=== PATIENT | male | born 1950 | race Caucasian/White ===

== ENCOUNTER 2016-11-20 12:50 | Emergency (ER) | payer MEDICARE, OTHER ==
[~2016-11-20] VITALS: Ht 167.6 cm; Wt 100.0 kg
[~2016-11-20 12:50] MED LIST: AMLO2.5T PO; LISI-363 PO; OMEP20TA PO; POTA99TA12 PO; PROT40TA PO; TRAM50TA PO
[2016-11-20 12:56] VITALS: BP 130/67; PULSE 69; RESP 18; TEMP 98.6; O2SAT 96
[2016-11-20] MEDS ORDERED: PANT40TA3 PO (13:05)
[2016-11-20] MEDS ORDERED: ARTISOL2 (13:05)
[2016-11-20] MEDS ORDERED: AMLO5TAB2 PO (13:05)
[2016-11-20] MEDS ORDERED: SOFOSBUVIR (13:05)
[2016-11-20] MEDS ORDERED: TRAM50TA PO (13:05)
[2016-11-20] MEDS ORDERED: METH500T3 PO (13:05)
--- NOTE | 2016-11-20 14:11 | PD ---
HPI . Neck pain Chief Complaint: Pain: Acute or Chronic Time Seen by Provider: 14:06 Travel History International Travel<30 days: No Contact w/Intl Traveler<30days: No Traveled to known affect area: No History of Present Illness HPI Patient presents with neck pain. He states that he has chronic neck and back problems and does routine physical therapy. He states that he was doing his exercises a couple of days ago when he developed pain in his neck. Pain is exacerbated by movement and exercising and is improved with shower and rest. He states the tramadol has not given him any relief. He reports no associated fever. He gives no symptoms of cervical radiculopathy. PFSH Past Medical History Arthritis: Yes Blood Disorders: No Heart Rhythm Problems: No Cancer: No Cardiovascular Problems: No Chemotherapy: No Congestive Heart Failure: No COPD: Yes Diabetes: No Endocrine: Yes (hep c) Gastrointestinal Disorders: Yes GERD: Yes Genitourinary: No Hepatitis: Yes (HEP. C) Hiatal Hernia: No Hypertension: Yes Immune Disorder: No Musculoskeletal: Yes Neurologic: No Psychiatric: No Reproductive: No Respiratory: No Radiation Therapy: No Ulcer: No Past Surgical History Abdominal Surgery: Yes (SPLENECTOMY) AICD: No Appendectomy: No Arteriovenous Shunt: No Cholecystectomy: No Coronary Artery Bypass Graft: No Ear Surgery: No Endocrine Surgery: No Eye Surgery: No Genitourinary Surgery: No Gynecologic Surgery: No Insulin Pump: No Joint Replacement: No Oral Surgery: No Pacemaker: No Other Surgery: Yes (ex lap. ? splenectomy) Social History Alcohol Use: No Tobacco Use: No Substance Use: No Allergies-Medications (Allergen,Severity, Reaction): Coded Allergies: No Known Allergies (Verified , 04/23/11) Reported Meds & Prescriptions Reported Meds & Active Scripts Active Reported Artificial Tears Opth Drops (Artificial Tear Solution Opth Drops) 0.1-0.3% Soln [sofosbuvir] 400 Mg Methocarbamol 500 Mg Tab 500 Mg PO TID Pantoprazole (Pantoprazole Sodium) 40 Mg Tab 40 Mg PO DAILY Tramadol (Tramadol HCl) 50 Mg Tab 50 Mg PO Q4H PRN Amlodipine (Amlodipine Besylate) 5 Mg Tab 5 Mg PO DAILY Review of Systems Except as stated in HPI: all other systems reviewed are Neg General / Constitutional: No: Fever, Chills Musculoskeletal: Positive: Myalgias (neck pain) Neurologic: No: Weakness, Focal Abnormalities, Paresthesia Physical Exam Narrative GENERAL: Awake and alert and in no acute distress. SKIN: Warm and dry. NECK: Diffuse tenderness to palpation. No swelling, erythema or warmth. Decreased range of motion. CARDIOVASCULAR: Regular rate and rhythm. RESPIRATORY: No accessory muscle use. MUSCULOSKELETAL: No obvious deformities. No edema. No lateralizing signs. NEUROLOGICAL: Awake and alert. No obvious cranial nerve deficits. Motor grossly within normal limits. Normal speech. PSYCHIATRIC: Appropriate mood and affect; insight and judgment normal. Data Data Last Documented VS Vital Signs Date Time Temp Pulse Resp B/P Pulse Ox O2 Delivery O2 Flow Rate FiO2 11/20/16 13:45 18 11/20/16 12:56 98.6 69 130/67 96 Orders Acetamin-Hydrocod 325-5 Mg ([place] 5-325 (11/20/16 14:15) Diazepam (Valium) (11/20/16 14:15) Ct Cerv Spine W/O Contrast (11/20/16 14:07) MDM Medical Decision Making Medical Screen Exam Complete: Yes Emergency Medical Condition: Yes Differential Diagnosis Differential diagnosis includes but is not limited to muscular neck pain, osteoarthritis, cervical stenosis, epidural abscess Narrative Course Patient presents for neck pain which started following some exercises that he does for physical therapy. Last Impressions Cervical Spine CT 11/20/16 1407 Signed Impressions: Service Date/Time: Sunday, November 20, 2016 15:08 - CONCLUSION: 1. No acute findings. Stable fusion at C5-6. Relatively stable degenerative changes compared with June 2015. Dave Solis MD Diagnosis Primary Impression: Neck pain Patient Instructions: Narcotic given in the ED Med/Other Pt SpecificInfo: Prescription(s) given Scripts Diazepam (Valium)5 Mg Tab5 Mg PO TID PRN (muscle spasm) #12 TAB Ref 0 Prov:Komal Wells MD 11/20/16 Hydrocodone-Acetaminophen ([place])5-325 mg Tab1 Tab PO Q4H PRN (PAIN) #12 TAB Ref 0 Prov:Komal Wells MD 11/20/16 Disposition: 01 DISCHARGE HOME Condition: Stable Komal Wells MD Nov 20, 2016 14:11
[2016-11-20] MEDS ORDERED: ACETAMINOPHEN/HYDROcodone 325 MG/5 MG TAB PO ONE (14:15)
[2016-11-20] MEDS ORDERED: DIAZEPAM 5 MG TAB PO ONE (14:15)
--- NOTE | 2016-11-20 15:54 | RADRPT ---
EXAM DATE/TIME: 11/20/2016 15:08 [facility] COMPARISON: CT CERVICAL SPINE W/O CONTRAST, July 06, 2015, 14:51. INDICATIONS : Neck pain for four days. RADIATION DOSE: 34.23 CTDIvol (mGy) MEDICAL HISTORY : Hypertension. Hepatitis C. SURGICAL HISTORY : Splenectomy. ENCOUNTER: Initial ACUITY: 4 - 6 days PAIN SCALE: 7/10 LOCATION: Bilateral neck TECHNIQUE: Volumetric scanning of the cervical spine was performed. Multiplanar reconstructions in the sagittal, coronal and oblique axial planes were performed. Using automated exposure control and adjustment o f the mA and/or kV according to patient size, radiation dose was kept as low as reasonably achievable to obtain optimal diagnostic quality images. FINDINGS: No acute fracture or spondylolisthesis. Stable fusion at C5-6 compared with June 2015. Posterior disc osteophyte complex present at C4-5 and C6-7 and to a lesser extent at C3-4 with mild stenosis of the lateral recesses and foraminal encroachment similar to prior examination. CONCLUSION: 1. No acute findings. Stable fusion at C5-6. Relatively stable degenerative changes compared with Jun. Dave Solis MD on November 20, 2016 at 15:49 Board Certified Radiologist. This report was verified electronically.
[2016-11-20] MEDS ORDERED: NORC5TAB PO (16:10)
[2016-11-20] MEDS ORDERED: DIAZ5 PO (16:10)
== END 2016-11-20 16:51 | disposition home or self-care (01) ==
LOC: NEPA 12:50
DX: M54.2 Cervicalgia (principal); J44.9 Chronic obstructive pulmonary disease, unspecified; B19.20 Unspecified viral hepatitis C without hepatic coma; K21.9 Gastro-esophageal reflux disease without esophagitis; I10 Essential (primary) hypertension
CPT/HCPCS: 72125